=== PATIENT | male | born 2000 | race Caucasian/White ===

== ENCOUNTER 2023-05-24 00:16 | Emergency (ER) | payer BC, OTHER ==
[~2023-05-24] VITALS: Ht 180.3 cm; Wt 108.7 kg
[2023-05-24] MEDS: ONDANSETRON 4MG 2ML VIAL IV ONE (01:25)
[2023-05-24] MEDS: KETOROLAC 30 MG/ML 1ML VIAL IV ONE (01:26)
[2023-05-24 01:41] LABS: BASO % 0.4 % (0.0-1.0); EOS # 0.1 10^3/uL (0.0-0.5); EOS % 0.9 % (0.0-3.0); HEMATOCRIT 42.9 % (42.0-52.0); HEMOGLOBIN 15.1 g/dl (13.5-17.5); LYMPH # 1.9 10^3/uL (1.5-5.0); LYMPH % 25.1 % (24.0-44.0); MEAN CORPUSCULAR HEMOGLOBIN 29.8 pg (27.0-33.0); MEAN CORPUSCULAR HGB CONC 35.2 g/dl (32.0-36.5); MEAN CORPUSCULAR VOLUME 84.8 fl (80.0-96.0); MONO # 0.6 10^3/uL (0.0-0.8); MONO % 7.7 % (2.0-8.0); NEUTROPHILS % 65.8 % (36.0-66.0); PLATELET COUNT, AUTOMATED 192 10^3/uL (150-450); RED BLOOD COUNT 5.06 10^6/uL (4.30-6.10); WHITE BLOOD COUNT 7.7 10^3/uL (4.0-10.0)
[2023-05-24 02:08] LABS: BLOOD UREA NITROGEN 16 MG/DL (9-23); CALCIUM LEVEL 8.8 MG/DL (8.5-10.1); CARBON DIOXIDE LEVEL 27 MMOL/L (20-31); CHLORIDE LEVEL 108 MMOL/L (98-107); CREATININE FOR GFR 0.81 MG/DL (0.70-1.30); GLOMERULAR FILTRATION RATE > 60.0 (>60); GLUCOSE, FASTING 88 MG/DL (60-100); POTASSIUM SERUM 4.1 MMOL/L (3.5-5.1); SODIUM LEVEL 140 MMOL/L (136-145)
[2023-05-24] MEDS ORDERED: FLOM0.4C39 PO (02:44)
[2023-05-24] MEDS ORDERED: ONDA4TAB6 PO (02:44)
[2023-05-24] MEDS ORDERED: KETO10TAB PO (02:44)
[2023-05-24] MEDS: TAMSULOSIN 0.4 MG CAP PO ONE (02:47)
[2023-05-24 02:49] VITALS: BP 140/65; TEMP 97.5; O2SAT 99
== END 2023-05-24 03:09 | disposition home or self-care (01) ==
LOC: M ED 00:16
DX: N20.1 Calculus of ureter (principal); N13.30 Unspecified hydronephrosis
CPT/HCPCS: 74176; 80048; 81001; 85025; 96374; 96375; 99284; J1885; J2405

== ENCOUNTER 2023-05-24 05:01 | Emergency (ER) | payer OTHER ==
[~2023-05-24] VITALS: Ht 177.8 cm; Wt 108.6 kg
[~2023-05-24 05:01] MED LIST: FLOM0.4C39 PO; KETO10TAB PO; ONDA4TAB6 PO
[2023-05-24 05:02] VITALS: TEMP 96.3
[2023-05-24] MEDS ORDERED: NS 1,000 ML IV ONE (05:40)
[2023-05-24] MEDS ORDERED: MORPHINE 4 MG/ML 1ML VIAL IV ONE (05:40)
[2023-05-24] MEDS ORDERED: ONDANSETRON 4MG 2ML VIAL IV ONE (05:40)
[2023-05-24 07:06] VITALS: BP 132/78; O2SAT 98
[2023-05-24] MEDS: traMADol 50 MG TAB PO ONE (07:06)
== END 2023-05-24 07:31 | disposition home or self-care (01) ==
LOC: M ED 05:01
DX: N20.0 Calculus of kidney (principal); Z79.899 Other long term (current) drug therapy

== ENCOUNTER → 2023-07-25 | Outpatient (REF) | payer OTHER | LOC: M SMT 15:18 | PROVIDERS: ATTEND Physician Assistant | DX: N20.0 Calculus of kidney (principal) ==

== ENCOUNTER → 2024-03-06 | Outpatient (CLI) | payer OTHER ==
[~2024-03-06] MED LIST changes: +ONDA-282 PO; -ONDA4TAB6 PO
== END ==
LOC: M RAD 15:42
PROVIDERS: ATTEND Physician Assistant
DX: N28.1 Cyst of kidney, acquired (principal)